=== PATIENT | male | born 1985 | race Caucasian/White ===

== ENCOUNTER 2017-03-12 09:43 | Emergency (ER) | payer BC ==
[~2017-03-12] VITALS: Ht 172.7 cm; Wt 97.5 kg
[~2017-03-12 09:43] MED LIST: MELA1TAB15 PO; PANT40TA2 PO; SUCR1TAB36 PO
--- OUTSIDE RECORDS SUMMARY | 2017-03-12 09:50 | XMS REPORT | Continuity of Care Document ---
Author Author [facility] of [facility] of [facility] Address Unknown Phone Unavailable Allergies Active Description Code Type Severity Reaction Onset Reported/Identified Relationship to Patient Clinical Status Yes No Known Drug Allergies [id number] Drug Allergy Unknown N/ A 06/25/2015 Medications Problems Date Dx Coded Attending Type Code Diagnosis Diagnosed By 02/25/2010 CHRIS PURCELL MD 465.9 Acute Upper Respiratory Infections Of Unspecified Site 02/25/2010 465.9 Acute Upper Respiratory Infections Of Unspecified Site 02/25/2010 STACY JONES APRNINA R 465.9 Acute Upper Respiratory Infections Of Unspecified Site 02/25/2010 CHRIS PURCELL MD 465.9 Acute Upper Respiratory Infections Of Unspecified Site 02/25/2010 ROBERT FARRIS ELVIN R 465.9 Acute Upper Respiratory Infections Of Unspecified Site 02/25/2010 ROBERT FARRIS ELVIN R 465.9 Acute Upper Respiratory Infections Of Unspecified Site 04/29/2010 CHRIS PURCELL MD 382.9 Unspecified Otitis Media 04/29/2010 CHRIS PURCELL MD 840.9 Sprain Of Unspecified Site Of Shoulder And Upper Arm 04/29/2010 382.9 Unspecified Otitis Media 04/29/2010 840.9 Sprain Of Unspecified Site Of Shoulder And Upper Arm 04/29/2010 STACY JONES APRNINA R 382.9 Unspecified Otitis Media 04/29/2010 ROBERT FARRIS ELVIN R 840.9 Sprain Of Unspecified Site Of Shoulder And Upper Arm 04/29/2010 CHRIS PURCELL MD 382.9 Unspecified Otitis Media 04/29/2010 CHRIS PURCELL MD 840.9 Sprain Of Unspecified Site Of Shoulder And Upper Arm 04/29/2010 ROBERT FARRIS ELVIN R 382.9 Unspecified Otitis Media 04/29/2010 ROBERT FARRIS ELVIN R 840.9 Sprain Of Unspecified Site Of Shoulder And Upper Arm 04/29/2010 ROBERT FARRIS ELVIN R 382.9 Unspecified Otitis Media 04/29/2010 ROBERT FARRIS, ELVIN R 840.9 Sprain Of Unspecified Site Of Shoulder And Upper Arm 06/12/2010 CHRIS PURCELL MD 726.2 OTHER AFFECTIONS OF SHOULDER REGION NOT ELSEWHERE CLASSIFIED 06/12/2010 726.2 OTHER AFFECTIONS OF SHOULDER REGION NOT ELSEWHERE CLASSIFIED 06/12/2010 STACY JONES APRNINA R 726.2 OTHER AFFECTIONS OF SHOULDER REGION NOT ELSEWHERE CLASSIFIED 06/12/2010 CHRIS PURCELL MD 726.2 OTHER AFFECTIONS OF SHOULDER REGION NOT ELSEWHERE CLASSIFIED 06/12/2010 ROBERT FARRIS ELVIN R 726.2 OTHER AFFECTIONS OF SHOULDER REGION NOT ELSEWHERE CLASSIFIED 06/12/2010 STACY JONES APRNINA R 726.2 OTHER AFFECTIONS OF SHOULDER REGION NOT ELSEWHERE CLASSIFIED 07/14/2010 CHRIS PURCELL MD 346.90 MIGRAINE UNSPECIFIED WITHOUT MENTION OF INTRACTABLE MIGRAINE WITHOUT MENTION OF STATUS MIGRAINOSUS 07/14/2010 CHRIS PURCELL MD 530.81 GERD 07/14/2010 CHRIS PURCELL MD 784.7 Epistaxis 07/14/2010 CHRIS PURCELL MD 789.60 Epigastric Pain 07/14/2010 346.90 MIGRAINE UNSPECIFIED WITHOUT MENTION OF INTRACTABLE MIGRAINE WITHOUT MENTION OF STATUS MIGRAINOSUS 07/14/2010 530.81 GERD 07/14/2010 784.7 Epistaxis 07/14/2010 789.60 Epigastric Pain 07/14/2010 STACY JONES APRNINA R 346.90 MIGRAINE UNSPECIFIED WITHOUT MENTION OF INTRACTABLE MIGRAINE WITHOUT MENTION OF STATUS MIGRAINOSUS 07/14/2010 ELVIN JONES APRN R 530.81 GERD 07/14/2010 STACY JONES APRNINA R 784.7 Epistaxis 07/14/2010 ROBERT FARRIS ELVIN R 789.60 Epigastric Pain 07/14/2010 CHRIS PURCELL MD 346.90 MIGRAINE UNSPECIFIED WITHOUT MENTION OF INTRACTABLE MIGRAINE WITHOUT MENTION OF STATUS MIGRAINOSUS 07/14/2010 CHRIS PURCELL MD 530.81 GERD 07/14/2010 CHRIS PURCELL MD 784.7 Epistaxis 07/14/2010 CHRIS PURCELL MD 789.60 Epigastric Pain 07/14/2010 STACY JONES APRNINA R 346.90 MIGRAINE UNSPECIFIED WITHOUT MENTION OF INTRACTABLE MIGRAINE WITHOUT MENTION OF STATUS MIGRAINOSUS 07/14/2010 ROBERT OPERATOR AUTOMATED PROCESS, ELVIN R 530.81 GERD 07/14/2010 ROBERT OPERATOR AUTOMATED PROCESS, ELVIN R 784.7 Epistaxis 07/14/2010 ROBERT OPERATOR AUTOMATED PROCESS, ELVIN R 789.60 Epigastric Pain 07/14/2010 ROBERT OPERATOR AUTOMATED PROCESS, ELVIN R 346.90 MIGRAINE UNSPECIFIED WITHOUT MENTION OF INTRACTABLE MIGRAINE WITHOUT MENTION OF STATUS MIGRAINOSUS 07/14/2010 ROBERT OPERATOR AUTOMATED PROCESS, ELVIN R 530.81 GERD 07/14/2010 ROBERT OPERATOR AUTOMATED PROCESS, ELVIN R 784.7 Epistaxis 07/14/2010 ROBERT OPERATOR AUTOMATED PROCESS, ELVIN R 789.60 Epigastric Pain 11/18/2012 786.09 DYSPNEA 11/18/2012 ROBERT OPERATOR AUTOMATED PROCESS, ELVIN R 786.09 DYSPNEA 11/18/2012 CHRIS PURCELL MD 786.09 DYSPNEA 11/18/2012 ROBERT OPERATOR AUTOMATED PROCESS, ELVIN R 786.09 DYSPNEA 11/18/2012 ROBERT OPERATOR AUTOMATED PROCESS, ELVIN R 786.09 DYSPNEA 06/20/2013 ROBERT OPERATOR AUTOMATED PROCESS, ELVIN R 786.2 COUGH 06/20/2013 CHRIS PURCELL MD 786.2 COUGH 06/20/2013 ROBERT OPERATOR AUTOMATED PROCESS, ELVIN R 786.2 COUGH 06/20/2013 ROBERT OPERATOR AUTOMATED PROCESS, ELVIN R 786.2 COUGH 02/01/2014 ROBERT OPERATOR AUTOMATED PROCESS, ELVIN R 786.2 COUGH 02/01/2014 ROBERT OPERATOR AUTOMATED PROCESS, ELVIN R 786.2 COUGH 06/05/2014 ROBERT OPERATOR AUTOMATED PROCESS, ELVIN R 524.62 TEMPOROMANDIBULAR JOINT DISORDERS ARTHRALGIA OF TEMPOROMANDIBULAR JOINT 06/14/2015 PATRICIA REDDY DO Ot R06.00 06/14/2015 PATRICIA REDDY DO Ot R07.81 06/25/2015 DIANA ELY DO Ot K21.9 06/25/2015 DIANA ELY DO Ot K29.70 06/25/2015 DIANA ELY DO Ot K44.9 06/26/2015 PATRICIA REDDY DO Ot R74.8 07/15/2015 PATRICIA REDDY DO Ot R74.8 Procedures Code [place] [address] XRAY CHEST 2 VIEW 11/18/2012 89847 EKG, TRACING (IN-HOUSE) 11/18/2012 84191 OXIMETRY 2012 Results Encounters ACCT No. Visit Date/Time Discharge Status Pt. Type Provider Facility Loc./Unit Complaint [id number] 06/05/2014 11:53:00 06/05/2014 23: 59:59 CLS Outpatient ELVIN JONES APRN [id number] 02/01/2014 16:27:00 02/01/2014 23: 59:59 CLS Outpatient ELVIN JONES APRN [id number] 01/09/2014 09:43:00 01/09/2014 23: 59:59 CLS Outpatient CHRIS PURCELL MD [id number] 06/20/2013 15:41:00 06/20/2013 23: 59:59 CLS Outpatient ELVIN JONES APRN [id number] 06/30/2012 16:01:00 06/30/2012 23: 59:59 CLS Outpatient CHRIS PURCELL MD [id number] 11/18/2012 08:33:00 Document Registration [id number] 06/25/2015 08:38:00 2015 10:50:00 DIS Outpatient DIANA ELY DO Via [facility] [id number] 06/24/2015 07:16:00 2015 23:59:59 CLS Outpatient DIANA ELY DO Via [facility] PREOP [id number] 06/20/2015 08:12:00 2015 23:59:59 CLS Outpatient PATRICIA REDDY DO Via [facility] RAD [id number] 06/04/2015 17:59:00 2015 23:59:59 CLS Outpatient PATRICIA REDDY DO Via [facility] RAD
--- NOTE | 2017-03-12 10:25 | ED Upper Extremity ---
General Chief Complaint: Upper Extremity Stated Complaint: LT ARM INJ Nursing Triage Note: PT REPORTS HE FELL OFF CHAIR THAT HE WAS STANDING ON YESTERDAY. HE C/O L ARM PAIN. HE DENIES ANY OTHER INJURY. Nursing Sepsis Screen: No Definite Risk Source: patient, family Exam Limitations: no limitations History of Present Illness Time seen by provider: 10:21 Initial Comments This 31-year-old white male presents after he fell off a chair upon which she was standing yesterday. The patient fell on an outstretched arm. The patient is complaining of pain primarily in the left elbow. The pain is sharp in nature , severe severe in quality, and made worse with pronation and supination. There is similar but much less intense pain in the left wrist and shoulder. The patient denies other injury in this fall. The patient denies associated headache, stiff neck, paresthesias, chest abdominal or pelvic pain, or injury to the right upper or either lower extremity. Allergies and Home Medications Allergies Coded Allergies: No Known Drug Allergies (Verified , 06/25/15) Home Medications Melatonin/Pyridoxine 1 Each Tablet, 5 MG PO HS, (Reported) Pantoprazole Sodium 40 Mg Tablet.dr, 40 MG PO BID, (Reported) Sucralfate 1 Gm Tablet, 1 GM PO QID, #120 Prescribed by: DIANA ELY on 06/25/15 0939 Constitutional: No chills, No fever EENTM: No blurred vision Respiratory: No cough Cardiovascular: No chest pain Gastrointestinal: No abdominal pain, No vomiting Genitourinary: no symptoms reported Musculoskeletal: see HPI, No back pain, joint pain (primarily the left elbow.) Skin: other (patient denies abrasion with the fall.) Psychiatric/Neurological: No Symptoms Reported Past Nvoinfh-Dgxmst-Yqbqmw Hx Patient Social History Alcohol Use: Occasionally Uses Recreational Drug Use: No Smoking Status: Never a Smoker 2nd Hand Smoke Exposure: No Recent Foreign Travel: No Contact w/Someone Who Travel: No Recent Infectious Disease Expo: No Recent Hopitalizations: No Physical Abuse: No Sexual Abuse: No Seasonal Allergies Seasonal Allergies: No Surgeries History of Surgeries: No Respiratory History of Respiratory Disorde: No (possible sleep apnea) Cardiovascular History of Cardiac Disorders: No Neurological History of Neurological Disord: No Gastrointestinal History of Gastrointestinal Di: Yes Musculoskeletal History of Musculoskeletal Dis: No Endocrine History of Endocrine Disorders: No Psychosocial Suicide Risk Score: 0 Reviewed Nursing Assessment Reviewed/Agree w Nursing PMH: Yes Physical Exam Vital Signs Vital Sign - Last 12Hours 03/12/17 09:51 Temp 98.2 Pulse 74 Resp 16 B/P (MAP) 145/96 Pulse Ox 99 O2 Delivery Room Air Capillary Refill : Less Than 3 Seconds General Appearance: WD/WN, mild distress HEENT: normal ENT inspection Neck: full range of motion, normal inspection Cardiovascular: normal peripheral pulses, regular rate, rhythm Respiratory: chest non-tender, lungs clear, normal breath sounds Gastrointestinal: normal bowel sounds, non tender Back: normal inspection Shoulder: normal inspection Elbow/Forearm: pain (there appears to be an effusion the left elbow with marked discomfort with either active or passive range of motion.), soft tissue tenderness, swelling Wrist: Yes normal inspection, Yes pain (there is slight tenderness palpation over the left wrist.) Hand: normal inspection, non-tender Neurologic/Tendon: normal sensation, normal motor functions, normal tendon functions Neurologic/Psychiatric: no motor/sensory deficits, alert, normal mood/affect, oriented x 3 Progress/Results/Core Measures Results/Orders My Orders Orders - KARSTEN REYNOLDS MD Shoulder, Left, 3 Views (03/12/17 10:19) Elbow, Left, 3 Views (03/12/17 10:19) Wrist, Left, 3 Views Or More (03/12/17 10:19) Hydrocodone/Apap 5/325 Tablet (Lortab 5 (03/12/17 10:30) Medications Given in ED Current Medications Medications Dose Ordered Sig/Zaira Route Start Time Stop Time Status Last Admin Dose Admin Acetaminophen/ Hydrocodone Bitart 2 tab ONCE ONCE PO 03/12/17 10:30 03/12/17 10:31 DC 03/12/17 10:30 2 TAB Vital Signs/I&O Vital Sign - Last 12Hours 03/12/17 09:51 Temp 98.2 Pulse 74 Resp 16 B/P (MAP) 145/96 Pulse Ox 99 O2 Delivery Room Air Blood Pressure Mean: 112 Progress Note : Time: 11:46 Progress Note X-rays of the left shoulder elbow and wrist demonstrated a comminuted fracture of the left radial head and neck. The patient was placed on long-arm posterior splint. Tylenol. States was undertaken with Dr. Barnhart. The patient will call for an appointment on Wednesday. The patient's pain was improved with the hydrocodone 5 325 2 tablets given in the emergency department. Patient had a normal neurovascular exam time of discharge. Departure Impression Impression: Primary Impression: Fracture of radial head, left, closed Qualified Codes: S52.122A - Displaced fracture of head of left radius, initial encounter for closed fracture Disposition: HOME, SELF-CARE Condition: Improved Departure-Patient Inst. Decision time for Depature: 11:48 Referrals: REJI BARNHART JACQUELINE S DO (PCP/Family) Primary Care Physician Patient Instructions: Elbow Fracture (DC) Add. Discharge Instructions: Follow-up with a telephone call to Dr. Barnhart's office on Wednesday. Flexeril ( muscle relaxer) and Vicodin (narcotic) as prescribed. Ice and elevate the left elbow while keeping it in the sling and posterior splint. Return if any problems or questions. KARSTEN REYNOLDS MD Mar 12, 2017 10:25
[2017-03-12] MEDS ORDERED: HYDROcodone/APAP 5 MG/325 MG (LORTAB) TAB PO ONE (10:30)
--- NOTE | 2017-03-12 10:59 | Diagnostic Imaging Report ---
INDICATION: Pain following fall. FINDINGS: There is no fracture, dislocation or acute articular incongruity. The visualized adjacent ribs and pleura appeared intact. IMPRESSION: No acute shoulder abnormality. Dictated by: Dictated on workstation # [id number]
--- NOTE | 2017-03-12 11:00 | Diagnostic Imaging Report ---
INDICATION: Left elbow pain. AP, oblique, and lateral views of the left elbow are obtained. FINDINGS: There is an acute fracture of the radial neck and head without significant displacement. Proximal ulna and distal humerus are intact. IMPRESSION: Acute fracture of proximal radius involving the radial neck and head. Dictated by: Dictated on workstation # [id number]
--- NOTE | 2017-03-12 11:05 | Diagnostic Imaging Report ---
INDICATION: Fall FINDINGS: The distal radius and ulna intact. The proximal and distal carpal rows intact. The carpometacarpal alignment appeared normal. No fracture or dislocation is identified. IMPRESSION: Negative Dictated by: Dictated on workstation # [id number]
[2017-03-12 12:01] VITALS: BP 145/96
== END 2017-03-12 12:01 | disposition home or self-care (01) ==
LOC: EDUNIT# 09:43 → ER 09:46
DX: S52.122A Displaced fracture of head of left radius, initial encounter for closed fracture (principal); S52.132A Displaced fracture of neck of left radius, initial encounter for closed fracture; W07.XXXA Fall from chair, initial encounter
CPT/HCPCS: 29105; 73030; 73080; 73110

== ENCOUNTER → 2018-07-19 | Outpatient (CLI) | payer BC ==
[~2018-07-19] MED LIST changes: +OMEP20CA12 PO
--- NOTE | 2018-07-19 11:46 | Diagnostic Imaging Report ---
INDICATION: Epigastric abdominal pain. TECHNIQUE: Multiple grayscale sonographic images were obtained of the right upper quadrant of the abdomen. CORRELATION STUDY: 06/20/2015. FINDINGS: LIVER: There is increased echotexture within the visualized portions of the liver. There may be a few areas of fatty sparing demonstrated. Left lobe is partially obscured. No definitive focal mass. Liver length is 15.8 cm. GALLBLADDER: Limited in its visualization. Definitive shadowing gallstone is not demonstrated. Gallbladder appears to be without significant wall thickening or pericholecystic fluid. COMMON BILE DUCT: Largely obscured by overlying bowel gas and cannot be visualized. PANCREAS: Largely obscured by overlying bowel gas. RIGHT KIDNEY: Measures 10.9 x 5.2 x 5.1 cm. No hydronephrosis. AORTA/IVC: Not well visualized. OTHER: None. IMPRESSION: 1. Overall limited right upper quadrant abdominal ultrasound evaluation. The gallbladder and biliary tree are not well visualized. Definitive shadowing gallstone however does not appear to be suggested. 2. Likely component of underlying hepatic steatosis. Dictated by: Dictated on workstation # [id number]
== END ==
LOC: RAD 07:32
PROVIDERS: ATTEND Surgery
DX: R10.13 Epigastric pain (principal)
CPT/HCPCS: 76705

== ENCOUNTER 2018-07-20 05:57 | Outpatient (CLI) | payer BC ==
[~2018-07-20] VITALS: Ht 172.7 cm; Wt 97.5 kg
[~2018-07-20 05:57] MED LIST changes: -OMEP20CA12 PO
[2018-07-20] MEDS ORDERED: OMEP20CA12 PO (15:02)
== END 2018-07-20 15:06 | disposition home or self-care (01) ==
LOC: PREOP 05:57
PROVIDERS: ATTEND Surgery
DX: Z01.818 Encounter for other preprocedural examination (principal)

== ENCOUNTER 2018-07-26 09:41 | Day surgery (SDC) | payer BC ==
[~2018-07-26] VITALS: Ht 172.7 cm; Wt 97.5 kg
[~2018-07-26 09:41] MED LIST changes: +OMEP20CA12 PO
[2018-07-26] MEDS ORDERED: LACTATED RINGERS 1,000 ML IV STA (09:43)
[2018-07-26] MEDS ORDERED: HURRICAINE EXT TUBE (BENZOCAINE) XX PRN (09:45)
--- OUTSIDE RECORDS SUMMARY | 2018-07-26 09:45 | XMS REPORT | Continuity of Care Document ---
Author Author [facility] C[facility] of [facility] C[facility] of [facility] Address Unknown Phone Unavailable Allergies Active Description Code Type Severity Reaction Onset Reported/Identified Relationship to Patient Clinical Status Yes No Known Drug Allergies [id number] Drug Allergy Unknown N/A 07/20/2018 Medications There is no data. Problems Date Dx Coded Attending Type Code [...] Respiratory Infections Of Unspecified Site 02/25/2010 ROBERT FARRIS, ELVIN R 465.9 Acute Upper Respiratory Infections [...] Of Shoulder And Upper Arm 04/29/2010 ROBERT FARRIS, ELVIN R 382.9 Unspecified Otitis Media 04/29/2010 ROBERT FARRIS, ELVIN R 840.9 Sprain Of Unspecified Site Of Shoulder And Upper Arm 04/29/2010 ROBERT FARRIS, ELVIN R 382.9 Unspecified Otitis Media 04/29/2010 [...] OF SHOULDER REGION NOT ELSEWHERE CLASSIFIED 06/12/2010 ELVIN JONES APRN R 726.2 OTHER AFFECTIONS OF SHOULDER REGION [...] 784.7 Epistaxis 07/14/2010 789.60 Epigastric Pain 07/14/2010 ROBERT FARRIS ELVIN R 346.90 MIGRAINE UNSPECIFIED WITHOUT MENTION OF INTRACTABLE MIGRAINE WITHOUT MENTION OF STATUS MIGRAINOSUS 07/14/2010 STACY JONES APRNINA R 530.81 GERD 07/14/2010 STACY JONES APRNINA R 784.7 Epistaxis 07/14/2010 ROBERT FARRIS, ELVIN R 789.60 Epigastric Pain 07/14/2010 CHRIS PURCELL MD 346.90 MIGRAINE UNSPECIFIED WITHOUT MENTION OF INTRACTABLE MIGRAINE WITHOUT MENTION OF STATUS MIGRAINOSUS 07/14/2010 CHRIS PURCELL MD 530.81 GERD 07/14/2010 CHRIS PURCELL MD 784.7 Epistaxis 07/14/2010 CHRIS PURCELL MD 789.60 Epigastric Pain 07/14/2010 STACY JONES APRNINA R 346.90 MIGRAINE UNSPECIFIED WITHOUT MENTION OF INTRACTABLE MIGRAINE WITHOUT MENTION OF STATUS MIGRAINOSUS 07/14/2010 ROBERT DESK REPRESENTATIVE, ELVIN R 530.81 GERD 07/14/2010 ROBERT DESK REPRESENTATIVE, ELVIN R 784.7 Epistaxis 07/14/2010 ROBERT DESK REPRESENTATIVE, ELVIN R 789.60 Epigastric Pain 07/14/2010 ROBERT DESK REPRESENTATIVE, ELVIN R 346.90 MIGRAINE UNSPECIFIED WITHOUT MENTION OF INTRACTABLE MIGRAINE WITHOUT MENTION OF STATUS MIGRAINOSUS 07/14/2010 ROBERT DESK REPRESENTATIVE, ELVIN R 530.81 GERD 07/14/2010 ROBERT DESK REPRESENTATIVE, ELVIN R 784.7 Epistaxis 07/14/2010 ROBERT DESK REPRESENTATIVE, ELVIN R 789.60 Epigastric Pain 11/18/2012 786.09 DYSPNEA 11/18/2012 ROBERT DESK REPRESENTATIVE, ELVIN R 786.09 DYSPNEA 11/18/2012 CHRIS PURCELL MD 786.09 DYSPNEA 11/18/2012 ROBERT DESK REPRESENTATIVE, ELVIN R 786.09 DYSPNEA 11/18/2012 ROBERT DESK REPRESENTATIVE, ELVIN R 786.09 DYSPNEA 06/20/2013 ROBERT SEWELLN, ELVIN R 786.2 COUGH 06/20/2013 CHRIS PURCELL MD 786.2 COUGH 06/20/2013 ROBERT DESK REPRESENTATIVE, ELVIN R 786.2 COUGH 06/20/2013 ROBERT DESK REPRESENTATIVE, ELVIN R 786.2 COUGH 02/01/2014 ROBERT DESK REPRESENTATIVE, ELVIN R 786.2 COUGH 02/01/2014 ROBERT DESK REPRESENTATIVE, ELVIN R 786.2 COUGH 06/05/2014 ROBERT DESK REPRESENTATIVE, ELVIN R 524.62 TEMPOROMANDIBULAR JOINT DISORDERS ARTHRALGIA OF TEMPOROMANDIBULAR JOINT 06/14/2015 PATRICIA OLMSTEAD DO Ot R06.00 06/14/2015 PATRICIA OLMSTEAD DO Ot R07.81 06/25/2015 DIANA ELY DO Ot K21.9 GASTRO-ESOPHAGEAL REFLUX DISEASE WITHOUT 06/25/2015 DIANA ELY DO Ot K29.70 GASTRITIS, UNSPECIFIED, WITHOUT BLEEDING 06/25/2015 DIANA ELY DO Ot K44.9 DIAPHRAGMATIC HERNIA WITHOUT OBSTRUCTION 06/26/2015 PATRICIA OLMSTEAD DO Ot R74.8 07/15/2015 PATRICIA OLMSTEAD DO Ot R74.8 03/12/2017 PATRICIA OLMSTEAD DO Ot R06.00 DYSPNEA, UNSPECIFIED 03/12/2017 ORENDER DO, PATRICIA S Ot R07.81 PLEURODYNIA 03/12/2017 DIANA ELY DO Ot Z01.818 ENCOUNTER FOR OTHER PREPROCEDURAL EXAMIN 03/12/2017 ORENDER DO, PATRICIA S Ot R74.8 ABNORMAL LEVELS OF OTHER SERUM ENZYMES 03/12/2017 GAIL BOSCH, KARSTEN Ruth Ot M79.602 PAIN IN LEFT ARM 03/12/2017 GAIL BOSCH, KARSTEN Ruth Ot S52.122A DISP FX OF HEAD OF LEFT RADIUS, INIT FOR 03/12/2017 GAIL BOSCH, KARSTEN Ruth Ot S52.132A DISP FX OF NECK OF LEFT RADIUS, INIT FOR 03/12/2017 GAIL BOSCH, KARSTEN Ruth Ot W07.XXXA FALL FROM CHAIR, INITIAL ENCOUNTER 07/14/2018 ORENDER DO, PATRICIA S Ot R06.00 DYSPNEA, UNSPECIFIED 07/14/2018 ORENDER DO, PATRICIA S Ot R07.81 PLEURODYNIA 07/14/2018 DIANA ELY DO Ot Z01.818 ENCOUNTER FOR OTHER PREPROCEDURAL EXAMIN 07/14/2018 ORENDER DO, PATRICIA S Ot R74.8 ABNORMAL LEVELS OF OTHER SERUM ENZYMES 07/15/2018 ORENDER DO, PATRICIA S Ot R06.00 DYSPNEA, UNSPECIFIED 07/15/2018 ORENDER DO, PATRICIA S Ot R07.81 PLEURODYNIA 07/15/2018 DIANA ELY DO Ot Z01.818 ENCOUNTER FOR OTHER PREPROCEDURAL EXAMIN 07/15/2018 ORENDER DO, PATRICIA S Ot R74.8 ABNORMAL LEVELS OF OTHER SERUM ENZYMES 07/19/2018 ORENDER DO, PATRICIA S Ot R06.00 DYSPNEA, UNSPECIFIED 07/19/2018 ORENDER DO, PATRICIA S Ot R07.81 PLEURODYNIA 07/19/2018 DIANA ELY DO Ot Z01.818 ENCOUNTER FOR OTHER PREPROCEDURAL EXAMIN 07/19/2018 ORENDER DO, PATRICIA S Ot R74.8 ABNORMAL LEVELS OF OTHER SERUM ENZYMES 07/19/2018 DIANA ELY DO Ot R10.13 EPIGASTRIC PAIN 07/20/2018 DIANA ELY DO Ot R10.13 EPIGASTRIC PAIN 07/21/2018 DIANA ELY DO Ot Z01.818 ENCOUNTER FOR OTHER PREPROCEDURAL EXAMIN Procedures Code Description [place] [address] XRAY CHEST 2 VIEW 11/18/2012 87470 EKG, TRACING (IN-HOUSE) 11/18/2012 50054 OXIMETRY 11/18/2012 Results There is no data. Encounters ACCT No. Visit Date/Time Discharge Status Pt. Type Provider Facility Loc./Unit Complaint [id number] 06/05/2014 11:53:00 06/05/2014 23:59:59 CLS Outpatient ELVIN OJNES APRN [id number] 02/01/2014 16:27:00 02/01/2014 23:59:59 CLS Outpatient ELVIN JONES APRN [id number] 01/09/2014 09:43:00 01/09/2014 23:59:59 CLS Outpatient CHRIS PURCELL MD [id number] 06/20/2013 15:41:00 06/20/2013 23:59:59 CLS Outpatient ELVIN JONES APRN [id number] 06/30/2012 16:01:00 06/30/2012 23:59:59 CLS Outpatient CHRIS PURCELL MD [id number] 11/18/2012 08:33:00 Document Registration 08/201706/28/2018 17:22:47 06/28/2018 23:59:59 CLS Outpatient Patricia Olmstead [id number] 07/20/2018 05:57:00 07/20/2018 15:06:00 DIS Outpatient DIANA ELY DO Via [facility] PREOP EGD [id number] 07/19/2018 07:32:00 07/19/2018 23:59:59 CLS Outpatient DIANA ELY DO Via [facility] RAD EPIGASTRIC ABD PAIN [id number] 07/13/2018 14:50:00 07/13/2018 23:59:59 CLS Preadmit DIANA ELY DO Via [facility] CARD EPIGASTRIC ABD PAIN [id number] 03/12/2017 09:46:00 03/12/2017 12:01:00 DIS Emergency KARSTEN REYNOLDS MD Via [facility] ER LT ARM INJ [id number] 06/25/2015 08:38:00 06/25/2015 10:50:00 DIS Outpatient DIANA ELY DO Via [facility] SDC GERD [id number] 06/24/2015 07:16:00 06/24/2015 23:59:59 CLS Outpatient DIANA ELY DO Via [facility] PREOP EGD [id number] 06/20/2015 08:12:00 06/20/2015 23:59:59 CLS Outpatient PATRICIA OLMSTEAD DO Via [facility] RAD ELEVATED LIVER ENZYMES [id number] 06/04/2015 17:59:00 06/04/2015 23:59:59 CLS Outpatient PATRICIA OLMSTEAD DO Via [facility] RAD R RIB/STERNUM PAIN DYSPNEA [id number] 07/26/2018 11:40:00 PEN Preadmit DIANA ELY DO Via [facility] ENDO EPIGASTRIC PAIN/REFLUX
[2018-07-26] MEDS ORDERED: LACTATED RINGERS 1,000 ML IV ONE (09:48)
[2018-07-26] MEDS ORDERED: PROPOFOL INJECTION 50 ML IV ONE (10:05)
[2018-07-26] MEDS ORDERED: MIDAZOLAM 2 MG/2 ML (VERSED) VIAL ONE ×2 (10:06→10:08)
--- NOTE | 2018-07-26 10:09 | Progress Note-Pre Operative ---
Pre-Operative Progress Note H&P Reviewed The H&P was reviewed, patient examined and no changes noted. Date Seen by Provider: Jul 26, 2018 Time Seen by Provider: 10:08 Date H&P Reviewed: Jul 26, 2018 Time H&P Reviewed: :08 Pre-Operative Diagnosis: epigastric abdominal pain, reflux DIANA ELY DO Jul 26, 2018 10:09
[2018-07-26 10:20] VITALS: BP 119/81
[2018-07-26] MEDS ORDERED: PANT40TA2 PO (10:35)
--- NOTE | 2018-07-26 10:35 | Progress Note-Post Operative ---
Post-Operative Progess Note Surgeon (s)/Pattern Molder (s) Surgeon DIANA ELY DO Pattern Molder: na Pre-Operative Diagnosis epigastric abdominal pain, reflux Post-Operative Diagnosis hiatal hernia Procedure & Operative Findings Date of Procedure 07/26/18 Procedure Performed/Findings egd c biopsy Anesthesia Type per real estate agent Estimated Blood Loss Estimated blood loss (mL): none Specimens/Packing Specimens Removed antrum DIANA ELY DO Jul 26, 2018 10:34
--- NOTE | 2018-07-26 10:36 | Discharge Inst-Simple/Standard ---
Discharge Inst-Standard Discharge Medications New, Converted or Re-Newed RX: RX on Chart Patient Instructions/Follow Up Plan of Care/Instructions/FU: 2 weeks Emmanuelle Activity as Tolerated: Yes Discharge Diet: Regular Diet DIANA ELY DO Jul 26, 2018 10:36
[2018-07-26 11:10] VITALS: BP 105/56
[2018-07-26 11:45] VITALS: BP 108/66
[2018-07-26 12:00] VITALS: BP 108/66
--- NOTE | 2018-07-26 12:45 | Anesthesia-General Post-Op ---
MAC Patient Condition Mental Status/LOC: Same as Preop Cardiovascular: Satisfactory Nausea/Vomiting: Absent Respiratory: Satisfactory Pain: Controlled Complications: Absent Post Op Complications Complications None Follow Up Care/Instructions Patient Instructions None needed. Anesthesiology Discharge Order Discharge Order Patient was seen after the procedure and he was doing well, no complaints, stable vital signs, no apparent adverse anesthesia problems. ANTIONE BENTLEY DO Jul 26, 2018 12:45
--- NOTE | 2018-07-26 19:40 | OPERATIVE REPORT ---
DATE OF SERVICE: 07/26/2018 PREOPERATIVE DIAGNOSES: Epigastric abdominal pain, reflux. POSTOPERATIVE DIAGNOSIS: Hiatal hernia. PROCEDURE: EGD with biopsy. SURGEON: Diana Handley DO ANESTHESIA: Per [employer]. ESTIMATED BLOOD LOSS: None. COMPLICATIONS: None. INDICATIONS: The patient is a 32-year-old male who has been having worsening reflux and epigastric abdominal pain. He understands risks and benefits of procedure and wished to proceed with procedure. Consent was signed and on the chart. DESCRIPTION OF PROCEDURE: The patient was taken to the endoscopy suite, placed in left lateral recumbent position. Timeout was performed. Scope was inserted in the mouth, down the esophagus, stomach and into the duodenum without difficulty. There were no polyps, masses or ulcerations in the duodenum. Scope was slowly retracted back into the stomach where it was further insufflated. Slight erythematous changes present. Biopsy of the antrum was obtained. Scope was retroflexed noting a sliding hiatal hernia. No other pathology noted. Scope was returned to its normal position, slowly withdrawn to the distal esophagus, had normal appearance. No polyps, masses or ulcerations or erythematous changes. Scope was slowly retracted back to completely remove, noting no other pathology. The patient tolerated procedure well without complications, taken to recovery room in stable condition. RECOMMENDATIONS: The patient will be switched to Protonix 40 mg daily. We will stop the omeprazole. The patient will have followup in two weeks to discuss pathology results and see how he is doing at that time. Job ID: [id number] DocumentID: [id number] Dictated Date: 07/26/2018 10:38:50 Spike Driver Date: 07/26/2018 19:39:35 Dictated By: DIANA HANDLEY DO
== END 2018-07-26 12:18 | disposition home or self-care (01) ==
LOC: ENDO 09:41
PROVIDERS: ATTEND Surgery
DX: K21.9 Gastro-esophageal reflux disease without esophagitis (principal); K44.9 Diaphragmatic hernia without obstruction or gangrene; G47.33 Obstructive sleep apnea (adult) (pediatric)

== ENCOUNTER → 2019-06-16 | Outpatient (CLI) | payer BC ==
[~2019-06-16] MED LIST changes: +OMEP-280 PO; -OMEP20CA12 PO
--- NOTE | 2019-06-16 11:44 | Diagnostic Imaging Report ---
INDICATION: Aspiration. TECHNIQUE: Study was performed in conjunction with speech therapy. Videofluoroscopy was performed during the swallowing of barium at multiple consistencies. Patient ingested thin as well as puree, mechanical soft, ground meat, as well as regular cracker consistency. Total of 45 seconds of fluoroscopic time was utilized. FINDINGS: Oral phase is unremarkable. There is normal epiglottic tilt and laryngeal elevation. No laryngeal penetration or aspiration was observed. There is minimal vallecular residue with multiple consistencies, however this did clear with a second swallow. IMPRESSION: Essentially unremarkable modified barium swallow. Dictated by: Dictated on workstation # [id number]
== END ==
LOC: RAD 09:25
PROVIDERS: ATTEND Surgery
DX: Y84.4 Aspiration of fluid as the cause of abnormal reaction of the patient, or of later complication, without mention of misadventure at the time of the procedure (principal)
CPT/HCPCS: 74230

== ENCOUNTER → 2022-09-04 | Outpatient (CLI) | payer BC ==
[~2022-09-04] MED LIST changes: +BARIUM for suspension 96% w/w (Vanilla Silq Medium Density) PO ONE; +BARIUM for suspension 98% w/w (Vanilla Silq High Density) PO ONE; -OMEP-280 PO; +OMEP20CA18 PO
--- NOTE | 2022-09-04 12:28 | Diagnostic Imaging Report ---
INDICATION: Hiatal hernia evaluation. Patient ingested effervescent crystals as well as thin and thick barium and imaging of the esophagus was performed in multiple obliquities. 0.7 minutes of fluoroscopic time was utilized. Preliminary radiograph of the chest is unremarkable. Post barium ingestion radiographs demonstrate free passage of barium through the esophagus into the stomach. No obstructing lesion is seen. Patient does have a large sliding-type hiatal hernia. No mass or stricture seen. No gastroesophageal reflux was demonstrated. IMPRESSION: Large hiatal hernia. The study is otherwise unremarkable. Dictated by: Dictated on workstation # [id number]
== END ==
LOC: RAD 10:40
PROVIDERS: ATTEND Surgery
DX: K44.9 Diaphragmatic hernia without obstruction or gangrene (principal); R13.10 Dysphagia, unspecified
CPT/HCPCS: 74220

== ENCOUNTER → 2023-02-23 | Outpatient (CLI) | payer BC ==
[~2023-02-23] MED LIST changes: -BARIUM for suspension 96% w/w (Vanilla Silq Medium Density) PO ONE; -BARIUM for suspension 98% w/w (Vanilla Silq High Density) PO ONE
--- NOTE | 2023-02-23 09:58 | Diagnostic Imaging Report ---
PROCEDURE: US Abdomen, limited. TECHNIQUE: Multiple realtime grayscale images were obtained over the abdomen in various projections. INDICATION: Elevated LFTs. COMPARISON: 07/19/2018 FINDINGS: The liver is normal diffusely hyperechoic consistent with hepatic steatosis. There is focal fatty sparing along the gallbladder fossa. No focal hepatic mass is seen. Portal vein shows hepatopetal flow. No intra or extrahepatic biliary dilatation is present. The common bile duct is not dilated and measures 3 mm. There is no evidence of cholelithiasis, gallbladder wall thickening, or pericholecystic fluid. The pancreas is not well-visualized due to overlying bowel gas. There is no ascites. The right kidney measures approximately 9.1 cm in length and has a normal appearance. The visualized portions of the IVC and aorta are normal. IMPRESSION: 1. Hepatic steatosis. 2. No cholelithiasis or sonographic evidence of acute cholecystitis. Dictated by: Dictated on workstation # [id number]
== END ==
LOC: RAD 09:30
PROVIDERS: ATTEND Nurse Practitioner Family
DX: K76.0 Fatty (change of) liver, not elsewhere classified (principal); R74.8 Abnormal levels of other serum enzymes
CPT/HCPCS: 76705